=== PATIENT | female | born 1975 | race Caucasian/White ===

== ENCOUNTER → 2022-08-11 | Outpatient (REF) | payer MEDICARE, MEDICAID | LOC: M LAB REF 17:06 | PROVIDERS: ATTEND Internal Medicine Endocrinology, Diabetes & Metabolism | DX: E04.1 Nontoxic single thyroid nodule (principal) ==

== ENCOUNTER → 2022-12-05 | Outpatient (CLI) | payer MEDICARE, OTHER | LOC: M LAB 11:29 | PROVIDERS: ATTEND Physician Assistant | DX: T78.40XD Allergy, unspecified, subsequent encounter (principal) ==

== ENCOUNTER → 2022-12-23 | Outpatient (REF) | payer MEDICARE | LOC: M SFHCDERM 13:02 | PROVIDERS: ATTEND Nurse Practitioner Family | DX: L50.9 Urticaria, unspecified (principal) ==

== ENCOUNTER → 2024-02-05 | Outpatient (CLI) | payer MEDICARE, MEDICAID ==
[~2024-02-05] MED LIST: PRED20TA PO
== END ==
LOC: M PLARAD 15:06
PROVIDERS: ATTEND Physician Assistant
DX: R91.1 Solitary pulmonary nodule (principal)
CPT/HCPCS: 78815; A9552

== ENCOUNTER → 2025-05-29 | Outpatient (CLI) | payer MEDICARE, MEDICAID | LOC: M SOG 07:22 | PROVIDERS: ATTEND Neuromusculoskeletal Medicine, Sports Medicine | DX: M25.512 Pain in left shoulder (principal) ==